=== PATIENT | male | born 1960 | race Caucasian/White ===

== ENCOUNTER 2018-04-26 07:35 | Day surgery (SDC) | payer OTHER ==
[~2018-04-26] VITALS: Ht 188 cm; Wt 117.5 kg
[~2018-04-26 07:35] MED LIST: CALCIUM CARBONATE; NO HOME MEDICATIONS
[2018-04-26 08:03] VITALS: BP 133/93; PULSE 79; TEMP 97.4
[2018-04-26 09:33] VITALS: BP 116/78; PULSE 77; TEMP 97.6
[2018-04-26 09:45] VITALS: BP 96/70; PULSE 80
[2018-04-26 10:00] VITALS: BP 90/73; PULSE 77
[2018-04-26 11:11] VITALS: BP 91/72; PULSE 74
== END 2018-04-26 10:25 | disposition home or self-care (01) ==
LOC: SDCO 07:35
DX: Z12.11 Encounter for screening for malignant neoplasm of colon (principal); Z86.010 Personal history of colon polyps; D12.2 Benign neoplasm of ascending colon; D12.0 Benign neoplasm of cecum; K57.30 Diverticulosis of large intestine without perforation or abscess without bleeding
CPT/HCPCS: J2250; J2405; J3010; J7030

== ENCOUNTER 2020-08-12 15:23 | Outpatient (RCR) | payer OTHER | END 2020-09-06 | disposition home or self-care (01) | LOC: WSOH | DX: E22.2 Syndrome of inappropriate secretion of antidiuretic hormone (principal); G57.11 Meralgia paresthetica, right lower limb; D64.9 Anemia, unspecified; S42.002D Fracture of unspecified part of left clavicle, subsequent encounter for fracture with routine healing; Z96.652 Presence of left artificial knee joint; Z98.890 Other specified postprocedural states; Z90.89 Acquired absence of other organs; Z87.891 Personal history of nicotine dependence; Y99.0 Civilian activity done for income or pay ==

== ENCOUNTER → 2020-09-08 | Outpatient (CLI) | payer OTHER | LOC: COL.RAD 13:37 | DX: S42.002D Fracture of unspecified part of left clavicle, subsequent encounter for fracture with routine healing (principal); G57.11 Meralgia paresthetica, right lower limb; E22.2 Syndrome of inappropriate secretion of antidiuretic hormone; D64.9 Anemia, unspecified ==

== ENCOUNTER → 2020-10-04 | Outpatient (CLI) | payer OTHER | LOC: COL.RAD 13:16 | DX: I77.810 Thoracic aortic ectasia (principal); S42.002D Fracture of unspecified part of left clavicle, subsequent encounter for fracture with routine healing; R16.1 Splenomegaly, not elsewhere classified; J92.9 Pleural plaque without asbestos; G57.11 Meralgia paresthetica, right lower limb; E22.2 Syndrome of inappropriate secretion of antidiuretic hormone; D64.9 Anemia, unspecified ==

== ENCOUNTER → 2020-11-26 | Outpatient (CLI) | payer OTHER | LOC: COL.RAD 07:34 | DX: S06.0X1D Concussion with loss of consciousness of 30 minutes or less, subsequent encounter (principal); S06.5X1S Traumatic subdural hemorrhage with loss of consciousness of 30 minutes or less, sequela; J32.2 Chronic ethmoidal sinusitis ==

== ENCOUNTER → 2020-12-24 | Outpatient (CLI) | payer OTHER | LOC: COL.RAD 10:13 | DX: S02.19XA Other fracture of base of skull, initial encounter for closed fracture (principal) ==